=== PATIENT | female | born 1965 | race Two or more races ===

== ENCOUNTER 2021-08-05 12:54 | Emergency (ER) | payer MEDICAID, OTHER ==
[~2021-08-05] VITALS: Ht 157.5 cm; Wt 75.7 kg
[2021-08-05 14:47] LABS: Urine Bacteria NONE SEEN /hpf (None Seen); Urine Blood Negative /uL (Negative); Urine Mucus FEW (None Seen); Urine Specific Gravity 1.025 (1.001-1.035); Urine WBC 7 /hpf (0 - 5)
[2021-08-05 14:48] VITALS: BP 121/72
[2021-08-05] MEDS ORDERED: ONDANSETRON ODT 4 MG TAB PO ONE (16:00)
[2021-08-05] MEDS ORDERED: MORPHINE SULFATE INJECTION 2 MG/ML SYRG IV ONE (16:00)
[2021-08-05] MEDS ORDERED: SODIUM CHLORIDE 0.9% 1,000 ML IV ONE (16:00)
[2021-08-05] MEDS ORDERED: cefTRIAXone 1GM/50ML D5W 50 ML IV ONE (16:00)
[2021-08-05] MEDS ORDERED: cefTRIAXone SOD 1,000 MG VL IM ONE (16:15)
[2021-08-05] MEDS ORDERED: CYCL-837 PO (16:39)
[2021-08-05] MEDS ORDERED: SULF800T7 PO (16:39)
[2021-08-05] MEDS ORDERED: NAP500T PO (16:39)
[2021-08-05] MEDS ORDERED: KETOROLAC TROMETH 60MG/2ML VIAL IM ONE (16:45)
== END 2021-08-05 17:10 | disposition home or self-care (01) ==
LOC: ER 12:54
DX: N39.0 Urinary tract infection, site not specified (principal); G89.29 Other chronic pain; M54.50 Low back pain, unspecified; Z79.899 Other long term (current) drug therapy; Z88.0 Allergy status to penicillin
CPT/HCPCS: 72100; 81001; 96372; 99284; J0696; J1885

== ENCOUNTER 2022-01-28 12:43 | Emergency (ER) | payer MEDICAID ==
[~2022-01-28] VITALS: Ht 160 cm; Wt 78.5 kg
[~2022-01-28 12:43] MED LIST: CYCL-837 PO; NAP500T PO; SULF800T7 PO
[2022-01-28 13:30] LABS: Urine Bacteria NONE SEEN /hpf (None Seen); Urine Blood Negative /uL (Negative); Urine Mucus FEW (None Seen); Urine Specific Gravity 1.025 (1.001-1.035); Urine WBC 3 /hpf (0 - 5)
[2022-01-28] MEDS ORDERED: ONDANSETRON ODT 4 MG TAB PO ONE (14:45)
[2022-01-28] MEDS ORDERED: HYDROcodone-ACET 10/325MG TAB PO ONE (14:45)
[2022-01-28] MEDS ORDERED: SULF800T7 PO (16:29)
[2022-01-28] MEDS ORDERED: NAP500T PO (16:29)
[2022-01-28] MEDS ORDERED: CYCL-837 PO (16:29)
[2022-01-28] MEDS ORDERED: cefTRIAXone SOD 1,000 MG VL IM ONE (16:30)
[2022-01-28] MEDS ORDERED: KETOROLAC TROMETH 60MG/2ML VIAL IM ONE (16:30)
[2022-01-28 16:50] VITALS: BP 112/64
== END 2022-01-28 16:29 | disposition home or self-care (01) ==
LOC: ER 12:43
DX: N39.0 Urinary tract infection, site not specified (principal); M54.16 Radiculopathy, lumbar region
CPT/HCPCS: 81001; 96372; 99284; J0696; J1885; Q0162

== ENCOUNTER 2022-06-04 10:52 | Emergency (ER) | payer MEDICAID ==
[~2022-06-04] VITALS: Ht 154.9 cm; Wt 73.0 kg
[2022-06-04 11:29] VITALS: BP 104/49
[2022-06-04] MEDS ORDERED: IBUPROFEN 800 MG TAB PO ONE (11:45)
[2022-06-04] MEDS ORDERED: IBUP800T27 PO (11:50)
== END 2022-06-04 12:14 | disposition home or self-care (01) ==
LOC: ER 10:52
DX: S82.55XA Nondisplaced fracture of medial malleolus of left tibia, initial encounter for closed fracture (principal); Z79.1 Long term (current) use of non-steroidal anti-inflammatories (NSAID); Z79.899 Other long term (current) drug therapy; Z88.0 Allergy status to penicillin; X50.1XXA Overexertion from prolonged static or awkward postures, initial encounter; Y93.89 Activity, other specified; Y92.89 Other specified places as the place of occurrence of the external cause; Y99.8 Other external cause status
CPT/HCPCS: 29515; 73610